=== PATIENT | male | born 1955 ===

== ENCOUNTER → 2023-08-09 | Outpatient (CLI) | payer MEDICAID ==
[2023-08-09 11:59] LABS: Urine Bacteria None Seen /hpf (None Seen)
[2023-08-09 12:26] LABS: Urine Blood Negative /uL (Negative); Urine Color Yellow (Yellow); Urine Hyaline Cast MANY /lpf (0 - 2); Urine Mucus FEW (None Seen); Urine Protein, UAD 2+ (Negative); Urine Specific Gravity 1.027 (1.001-1.035); Urine Sperm PRESENT /hpf (None Seen); Urine Urobilinogen 4 mg/dL (Negative); Urine WBC 6 /hpf (0 - 3)
[2023-08-09 12:28] LABS: Urine Clarity Hazy (Clear)
[2023-08-09 12:34] LABS: Alanine Aminotransferase 20 U/L (7-40); Alkaline Phosphatase 65 U/L (46-116); Anion Gap 7 (5-15); Aspartate Aminotransferase 32 U/L (13-40); Calcium 9.3 mg/dL (8.5-10.1); Carbon Dioxide 27 mmol/L (20-30); Chloride 107 mmol/L (98-107); Glucose 97 mg/dL (74-106); LDL Cholesterol 84 mg/dL (< 100); Potassium 4.5 mmol/L (3.5-5.1); Sodium 141 mmol/L (136-145); Triglycerides 170 mg/dL (< 150)
[2023-08-09 12:35] LABS: Albumin 4.5 g/dL (3.2-4.8); BUN/Creatinine Ratio 3.3 (10.0-20.0); Bilirubin, Total 0.5 mg/dL (0.2-1.0); Blood Urea Nitrogen < 5 mg/dL (9-23); Cholesterol 135 mg/dL (< 200); HDL Cholesterol 29 mg/dL (40-59); Total Protein 7.6 g/dL (5.7-8.2)
[2023-08-09 12:39] LABS: Folate (Folic Acid) 9.04 ng/mL (>5.38)
[2023-08-09 12:49] LABS: Uric Acid 7.6 mg/dL (3.7-9.2)
== END | disposition home or self-care (01) ==
LOC: LAB 11:34
PROVIDERS: ATTEND Internal Medicine
DX: I10 Essential (primary) hypertension (principal); E78.5 Hyperlipidemia, unspecified; K21.9 Gastro-esophageal reflux disease without esophagitis; R82.79 Other abnormal findings on microbiological examination of urine
CPT/HCPCS: 36415; 80053; 80061; 81001; 82306; 82607; 82746; 83036; 83540; 83550; 84443; 84550; 87086

== ENCOUNTER → 2023-10-21 | Outpatient (CLI) | payer MEDICAID ==
[2023-10-21 11:04] LABS: Urine Bacteria None Seen /hpf (None Seen)
[2023-10-21 11:12] LABS: Basophils # (auto) 0.1 10 ^3/uL (0-0.2); Basophils % (auto) 0.6 % (0.0-2.0); Eosinophils # (auto) 0.6 10 ^3/uL (0-0.8); Eosinophils % (auto) 6.2 % (0.0-7.0); Hematocrit 51.1 % (41.0-53.0); Hemoglobin 17.4 g/dL (13.5-17.5); Lymphocytes # (auto) 2.4 10 ^3/uL (0.4-5.4); Lymphocytes % (auto) 26.5 % (10.0-50.0); Mean Corpuscular Hemoglobin 32.3 pg (28.0-32.0); Mean Corpuscular Hgb Conc. 34.1 g/dL (32.0-36.0); Mean Corpuscular Volume 94.7 fL (80.0-100.0); Monocytes # (auto) 0.9 10 ^3/uL (0-1.3); Monocytes % (auto) 10.1 % (0.0-12.0); Neutrophils # (auto) 5.2 10 ^3/uL (1.6-8.6); Neutrophils % (auto) 56.6 % (37.0-80.0); Red Cell Distribution Width 14.3 % (11.8-14.3); White Blood Cell 9.2 10^3/uL (4.4-10.8)
[2023-10-21 11:56] LABS: Urine Blood Negative /uL (Negative); Urine Clarity Clear (Clear); Urine Color Yellow (Yellow); Urine Mucus FEW (None Seen); Urine Protein, UAD 1+ (Negative); Urine Specific Gravity 1.024 (1.001-1.035); Urine Urobilinogen 2 mg/dL (Negative); Urine WBC 2 /hpf (0 - 3)
[2023-10-21 12:24] LABS: Alanine Aminotransferase 17 U/L (7-40); Albumin 4.8 g/dL (3.2-4.8); Alkaline Phosphatase 81 U/L (46-116); Anion Gap 6 (5-15); Aspartate Aminotransferase 18 U/L (13-40); BUN/Creatinine Ratio 6.8 (10.0-20.0); Bilirubin, Total 0.5 mg/dL (0.2-1.0); Blood Urea Nitrogen 8 mg/dL (9-23); Calcium 9.9 mg/dL (8.7-10.4); Carbon Dioxide 29 mmol/L (20-30); Chloride 106 mmol/L (98-107); Cholesterol 202 mg/dL (< 200); Glucose 129 mg/dL (74-106); HDL Cholesterol 33 mg/dL (40-59); LDL Cholesterol 148 mg/dL (< 100); Magnesium 2.2 mg/dL (1.6-2.6); Potassium 3.7 mmol/L (3.5-5.1); Sodium 141 mmol/L (136-145); Total Protein 8.1 g/dL (5.7-8.2); Triglycerides 210 mg/dL (< 150)
[2023-10-21 14:13] LABS: Prostate Specific Antigen 0.28 ng/mL (0.0-4.0)
[2023-10-21 14:15] LABS: Folate (Folic Acid) 8.33 ng/mL (>5.38)
== END | disposition home or self-care (01) ==
LOC: LAB 10:51
PROVIDERS: ATTEND Internal Medicine
DX: I12.9 Hypertensive chronic kidney disease with stage 1 through stage 4 chronic kidney disease, or unspecified chronic kidney disease (principal); N18.31 Chronic kidney disease, stage 3a; N40.0 Benign prostatic hyperplasia without lower urinary tract symptoms; J44.9 Chronic obstructive pulmonary disease, unspecified
CPT/HCPCS: 36415; 80053; 80061; 81001; 82306; 82607; 82746; 83036; 83735; 84153; 84443; 84550; 85025; 87086

== ENCOUNTER → 2024-03-03 | Outpatient (CLI) | payer MEDICAID ==
[2024-03-03 10:32] LABS: Basophils # (auto) 0.1 10 ^3/uL (0-0.2); Eosinophils # (auto) 0.6 10 ^3/uL (0-0.8); Eosinophils % (auto) 8.5 % (0.0-7.0); Hematocrit 49.3 % (41.0-53.0); Hemoglobin 16.4 g/dL (13.5-17.5); Lymphocytes # (auto) 2.7 10 ^3/uL (0.4-5.4); Lymphocytes % (auto) 37.3 % (10.0-50.0); Mean Corpuscular Hemoglobin 31.5 pg (28.0-32.0); Mean Corpuscular Hgb Conc. 33.3 g/dL (32.0-36.0); Mean Corpuscular Volume 94.7 fL (80.0-100.0); Monocytes # (auto) 0.8 10 ^3/uL (0-1.3); Neutrophils # (auto) 3.1 10 ^3/uL (1.6-8.6); Neutrophils % (auto) 42.2 % (37.0-80.0); Nucleated Red Blood Cells % 0.1 %; Platelet Count (auto) 185 10^3/uL (140-450); Red Blood Cells 5.21 10^6/uL (4.5-5.90); Red Cell Distribution Width 14.8 % (11.8-14.3); White Blood Cell 7.2 10^3/uL (4.4-10.8)
[2024-03-03 10:57] LABS: Alanine Aminotransferase 18 U/L (7-40); Albumin 4.4 g/dL (3.2-4.8); Alkaline Phosphatase 69 U/L (46-116); Anion Gap 8 (5-15); Aspartate Aminotransferase 18 U/L (13-40); BUN/Creatinine Ratio 5.8 (10.0-20.0); Calcium 9.9 mg/dL (8.7-10.4); Carbon Dioxide 26 mmol/L (20-31); Cholesterol 189 mg/dL (< 200); Magnesium 2.1 mg/dL (1.6-2.6); Sodium 144 mmol/L (136-145)
[2024-03-03 10:58] LABS: Bilirubin, Total 0.6 mg/dL (0.2-1.0); Total Protein 7.6 g/dL (5.7-8.2)
[2024-03-03 11:00] LABS: % Iron Saturation 30.5 % (20-55)
[2024-03-03 11:01] LABS: Free T4 (Free Thyroxine) 0.88 ng/dL (0.89-1.76)
[2024-03-03 11:02] LABS: Blood Urea Nitrogen 7 mg/dL (9-23); Chloride 110 mmol/L (98-107); Folate (Folic Acid) 6.77 ng/mL (>5.38); Glucose 114 mg/dL (74-106); HDL Cholesterol 30 mg/dL (40-59); LDL Cholesterol 141 mg/dL (< 100); Triglycerides 186 mg/dL (< 150)
[2024-03-03 11:12] LABS: Uric Acid 8.8 mg/dL (3.7-9.2)
[2024-03-04 08:06] LABS: PSA Free 0.09 ng/mL; Prostate Specific Antigen 0.3 ng/mL (0.0-4.0)
== END | disposition home or self-care (01) ==
LOC: LAB 09:49
PROVIDERS: ATTEND Internal Medicine
DX: I12.9 Hypertensive chronic kidney disease with stage 1 through stage 4 chronic kidney disease, or unspecified chronic kidney disease (principal); N18.31 Chronic kidney disease, stage 3a; K21.9 Gastro-esophageal reflux disease without esophagitis; J44.9 Chronic obstructive pulmonary disease, unspecified; E61.2 Magnesium deficiency; E78.49 Other hyperlipidemia; E79.0 Hyperuricemia without signs of inflammatory arthritis and tophaceous disease; E55.9 Vitamin D deficiency, unspecified; D51.9 Vitamin B12 deficiency anemia, unspecified; R68.89 Other general symptoms and signs; R73.09 Other abnormal glucose; R94.6 Abnormal results of thyroid function studies; R82.90 Unspecified abnormal findings in urine; R82.79 Other abnormal findings on microbiological examination of urine
CPT/HCPCS: 36415; 80053; 80061; 82306; 82607; 82746; 83036; 83540; 83550; 83735; 84154; 84439; 84443; 84550; 85025

== ENCOUNTER 2024-05-14 03:25 | Inpatient (IN) | payer MEDICAID ==
[2024-05-14] VITALS (7 sets, daily range): BP systolic 110–145; BP diastolic 59–102; PULSE 58–73; RESP 18–19; TEMP 97.6–98.3; O2SAT 94–98
[~2024-05-14] VITALS: Ht 170.2 cm; Wt 78.8 kg
[~2024-05-14 03:25] MED LIST: APIX5TAB PO; METO-289 PO; PARO10TA93 PO; TAMS0.4C39 PO
[2024-05-14] MEDS ORDERED: AMLO1TAB23 PO (07:32)
[2024-05-14] MEDS ORDERED: PAR20T PO (07:32)
[2024-05-14] MEDS ORDERED: PANT40TA2 PO (07:32)
[2024-05-14] MEDS ORDERED: OME20GT GT (07:32)
[2024-05-14] MEDS ORDERED: ROSU40TA81 PO (07:32)
[2024-05-14] MEDS ORDERED: LISI20TA56 PO (07:32)
[2024-05-14] MEDS: hydrALAZINE HCL 20 MG/ML VL IV ONE (09:45)
[2024-05-14] MEDS ORDERED: ONDANSETRON HCL 4 MG/2 ML VIAL IV PRN (10:45)
[2024-05-14 11:45] LABS: Basophils # (auto) 0 10 ^3/uL (0-0.2); Basophils % (auto) 0.6 % (0.0-2.0); Eosinophils # (auto) 0.4 10 ^3/uL (0-0.8); Eosinophils % (auto) 4.9 % (0.0-7.0); Hematocrit 47.3 % (41.0-53.0); Lymphocytes % (auto) 25.5 % (10.0-50.0); Mean Corpuscular Hemoglobin 31.1 pg (28.0-32.0); Mean Corpuscular Hgb Conc. 33.8 g/dL (32.0-36.0); Mean Corpuscular Volume 91.9 fL (80.0-100.0); Monocytes # (auto) 0.7 10 ^3/uL (0-1.3); Monocytes % (auto) 9.4 % (0.0-12.0); Neutrophils # (auto) 4.6 10 ^3/uL (1.6-8.6); Neutrophils % (auto) 59.6 % (37.0-80.0); Nucleated Red Blood Cells % 0.1 %; Platelet Count (auto) 171 10^3/uL (140-450); Red Blood Cells 5.15 10^6/uL (4.5-5.90); Red Cell Distribution Width 14.3 % (11.8-14.3); White Blood Cell 7.7 10^3/uL (4.4-10.8)
--- NOTE | 2024-05-14 11:58 | DVH ---
PROCEDURE: US CAROTID DUPLX W COLOR DOP 05/14/2024 10:45 AM INDICATION: presyncope COMPARISON: None TECHNIQUE: Real-time grayscale and color Doppler images of the neck arteries were obtained with spect ral analysis performed. FINDINGS: Suboptimal exam due to patient cooperation. RIGHT: No significant atherosclerotic plaque identified in the carotid. Normal spectral waveforms are seen. ICA peak systolic velocity: 45 cm/s ICA end-diastolic velocity: 20 cm/s ICA/CCA ratios: 1.0 LEFT: Mild plaque formation seen at the carotid bulb. Normal spectral waveforms are seen. ICA peak systolic velocity: 41 cm/s ICA end-diastolic velocity: 10 cm/s ICA/CCA ratios: 0.9 VERTEBRAL ARTERIES: The right vertebral artery is nonvisualized. The left vertebral artery shows nor mal antegrade flow spectral waveform. IMPRESSION: 1. No hemodynamically significant carotid artery stenosis identified bilaterally. 2. The right vertebral artery is not seen. Reference: Radiology 2003; 229:[id number] Normal ICA PSV is <125 cm/sec and no plaque or intimal thickening is visible sonographically additional criteria include ICA/CCA PSV ratio <2.0 and ICA EDV <40 cm/sec <50% ICA stenosis ICA PSV is <125 cm/sec and plaque or intimal thickening is visible sonographically additional criteria include ICA/CCA PSV ratio <2.0 and ICA EDV <40 cm/sec 50-69% ICA stenosis ICA PSV is 125-230 cm/sec and plaque is visible sonographically additional criteria include ICA/CCA PSV ratio of 2.0-4.0 and ICA EDV of 40-100 cm/sec 70% ICA stenosis but less than near occlusion ICA PSV is >230 cm/sec and visible plaque and luminal narrowing are seen at rose-scale and color Dopp ler ultrasound (the higher the Doppler parameters lie above the threshold of 230 cm/sec, the greater the likelihood of severe disease) additional criteria include ICA/CCA PSV ratio >4 and ICA EDV >100 cm/sec
[2024-05-14 12:01] LABS: Alanine Aminotransferase 15 U/L (7-40); Albumin 4.6 g/dL (3.2-4.8); Alkaline Phosphatase 62 U/L (46-116); Anion Gap 7 (5-15); Aspartate Aminotransferase 17 U/L (13-40); BUN/Creatinine Ratio 5.6 (10.0-20.0); Calcium 9.3 mg/dL (8.7-10.4); Carbon Dioxide 25 mmol/L (20-31); Chloride 107 mmol/L (98-107); Potassium 3.8 mmol/L (3.5-5.1); Sodium 139 mmol/L (136-145); Total Protein 7.5 g/dL (5.7-8.2)
--- NOTE | 2024-05-14 12:01 | DVHHP2 ---
History of Present Illness Reason for Visit: dizziness History of Present Illness This 69-year-old male with past medical history of hypertension, CHF, pacemaker, depression, GERD is a transferred from [facility] ER. The patient is alert and oriented x3 but somehow poor historian who reports symptoms with dizziness, slurred speech, slower responses a few hours prior to ED visit. Patient denies syncope, headaches, chest pain, shortness of breath, abdominal pain or other acute symptoms. Past Medical History As stated in HPI Past Surgical History Denies Family History Reviewed, non-contributory to the management of this case. Past Social History The patient lives at home, denies smoking, alcohol or illicit drugs abuse. Review of Systems Constitutional: Yes: Weakness, Malaise; No: Fever, Chills, Sweats, Other Eyes: No: Pain, Vision change, Conjunctivae inflammation, Eyelid inflammation, Other, Redness ENT: No: Ear pain, Ear discharge, Nose pain, Nose discharge, Nose congestion, Mouth pain, Mouth swelling, Throat pain, Throat swelling, Other Respiratory: No: Cough, Dry, Shortness of breath, SOB with excertion, Wheezing, Hemoptysis, Pleuritic Pain, Sputum, Wheezing, Other Cardiovascular: No: Chest Pain, Palpitations, Orthopnea, Paroxysmal Noc. Dyspnea, Edema, Lt Headedness, Other Gastrointestinal: No: Nausea, Vomiting, Abdominal Pain, Diarrhea, Constipation, Melena, Hematochezia, Other Genitourinary: No Dysuria, No Frequency, No Incontinence, No Hematuria, No Retention, No Other Musculoskeletal: No: other, neck pain, shoulder pain, arm pain, back pain, hand pain, leg pain, foot pain Skin: No: Rash, Lesions, Jaundice, Bruising, Other Neurological: Weakness, Change in speech, Other (Dizziness) Allergies: Coded Allergies: NO KNOWN ALLERGIES (Unverified , 05/14/24) Medications Current Medications Medications Dose Ordered Sig/Albert Route Start Time Stop Time Status Last Admin Dose Admin Ondansetron HCl 4 mg Q4HP PRN IV 05/14/24 10:45 UNV Enoxaparin Sodium 40 mg DAILY SC 05/15/24 10:00 UNV Exam Vital Signs Vital Signs Date Time Temp Pulse Resp B/P (MAP) Pulse Ox O2 Delivery O2 Flow Rate FiO2 05/14/24 06:45 70 19 95 Room Air* 0 21 05/14/24 06:45 98.2 145/89 (107) 98.2 General Appearance: Alert, Oriented X3, Cooperative HEENT: Atraumatic, EOMI, Mucous membr. moist/pink Respiratory: Clear to auscultation, Normal air movement Cardiovascular: Regular rate, Normal S1, Normal S2 Abdominal: Normal bowel sounds, Soft, No tenderness Extremities: No clubbing, No cyanosis, No edema, Normal pulses, No tenderness/swelling Skin: No rashes, No breakdown, No significant lesion Neuro: Strength at 5/5 X4 ext, Sensation intact Psych/Mental Status: Mental status NL Assessment/Plan Assessment/Plan # Rule out CVA Admit to telemetry Neurology consult CT head results negative for acute pathology Carotid US Echo Labs pending # Hypertension # Presence of permanent pacemaker # CHF Continue with amlodipine, lisinopril, Toprol Hydralazine as needed # hyperlipidemia Statins # anxiety depression Paroxetine # GERD PPI DVT prophylaxis Medical plan discussed with patient and RN Plan discussed with: Patient My Orders Orders - STEPHANIE FIORE Procedure Category Date Status Time Admit ADMIT 05/14/24 Transmitted 10:33 Code Status CODE 05/14/24 Transmitted 10:33 Ondansetron Hcl PHA 05/14/24 Logged (Zofran) 10:45 Enoxaparin Sodium PHA 05/15/24 Logged (Lovenox) 10:00 Fall Risk Precautions IDANIA 05/14/[address] 10:33 Complete Blood Count LAB 05/15/24 Verified 04:00 Comprehensive LAB 05/15/24 Verified Metabolic Panel 04:00 Cardiac DIET 05/14/24 Transmitted Diet-2gna,Lofat,Lochol Lunch Echo 2d Mode Cardiac US 05/14/24 Logged DOP 10:33 Carotid Duplx W Color US 05/14/24 Logged DOP 10:33 Condition: Fair IDANIA 05/14/24 In Process 10:33 * Neurology Consult CONS 05/14/24 Transmitted 10:33 Complete Blood Count LAB 05/14/24 Verified 10:37 Comprehensive LAB 05/14/24 Verified Metabolic Panel 10:37 Urinalysis LAB 05/14/24 Verified 10:37 Amlodipine Tablet PHA 05/15/24 Verified (Norvasc Tablet) 10:00 Amlodipine Tablet PHA 05/14/24 Verified (Norvasc Tablet) 10:45 Lisinopril Tablet PHA 05/15/24 Verified (Zestril Tablet) 10:00 Date of Service: May 14, 2024 Billing Provider: STEPHANIE FIORE Common Visit Codes: [id number] INP/OBS CARE (HIGH) STEPHANIE FIORE May 14, 2024 12:01
[2024-05-14 12:02] LABS: Blood Urea Nitrogen 6 mg/dL (9-23); Glucose 119 mg/dL (74-106)
[2024-05-14 12:38] LABS: Cholesterol 175 mg/dL (< 200)
[2024-05-14 12:40] LABS: HDL Cholesterol 29 mg/dL (40-59); LDL Cholesterol 130 mg/dL (< 100); Triglycerides 164 mg/dL (< 150)
--- NOTE | 2024-05-14 13:31 | DVHPN2 ---
Reviewed: Care Plan, H&P, Labs, Medications, Previous Orders, Radiology Changes from previous H/P or p: No Changes Eyes: No Pain, No Vision change, No Conjunctivae inflammation, No Eyelid inflammation, No Other, No Redness ENT: No Ear pain, No Ear discharge, No Nose pain, No Nose discharge, No Nose congestion, No Mouth pain, No Mouth swelling, No Throat pain, No Throat swelling, No Other Cardiovascular: No Chest Pain, No Palpitations, No Orthopnea, No Paroxysmal Noc. Dyspnea, No Edema, No Lt Headedness, No Other Respiratory: No Cough, No Dry, No Shortness of breath, No SOB with excertion, No Wheezing, No Hemoptysis, No Pleuritic Pain, No Sputum, No Other Gastrointestinal: No Nausea, No Vomiting, No Abdominal Pain, No Diarrhea, No Constipation, No Melena, No Hematochezia, No Other Genitourinary: No Dysuria, No Frequency, No Incontinence, No Hematuria, No Retention, No Other Musculoskeletal: No other, No neck pain, No shoulder pain, No arm pain, No back pain, No hand pain, No leg pain, No foot pain Skin: No Rash, No Lesions, No Jaundice, No Bruising, No Other Objective Vitals Vital Signs Date Time Temp Pulse Resp B/P (MAP) Pulse Ox O2 Delivery O2 Flow Rate FiO2 05/14/24 08:00 70 18 95 Room Air* 0 21 05/14/24 06:45 98.2 145/89 (107) 98.2 Medications Current Medications Medications Dose Ordered Sig/Albert Route Start Time Stop Time Status Last Admin Dose Admin Ondansetron HCl 4 mg Q4HP PRN IV 05/14/24 10:45 Enoxaparin Sodium 40 mg DAILY SC 05/15/24 10:00 Amlodipine Besylate 10 mg DAILY PO 05/15/24 10:00 Lisinopril 20 mg DAILY PO 05/15/24 10:00 Metoprolol Succinate 50 mg DAILY PO 05/15/24 10:00 Pantoprazole Sodium 40 mg DAILY PO 05/15/24 10:00 Paroxetine HCl 20 mg DAILY PO 05/15/24 10:00 Atorvastatin Calcium 80 mg HS PO 05/14/24 22:00 Laboratory Results Laboratory Tests 05/14/24 11:12 Chemistry Test 05/14/24 11:12 Albumin 4.6 g/dL (3.2-4.8) Calcium Level 9.3 mg/dL (8.7-10.4) Total Protein 7.5 g/dL (5.7-8.2) Lipid panel Test 05/14/24 11:12 Cholesterol Level 175 mg/dL (< 200) HDL Cholesterol 29 mg/dL (40-59) L Triglycerides Level 164 mg/dL (< 150) H LFT Test 05/14/24 11:12 Alanine Aminotransferase (ALT) 15 U/L (7-40) Alkaline Phosphatase 62 U/L (46-116) Aspartate Amino Transferase (AST) 17 U/L (13-40) Total Bilirubin 1.0 mg/dL (0.2-1.0) Labs and/or images reviewed: Labs reviewed by me, Image(s) reviewed by me Assessment/Plan Assessment/Plan Slurry Speech rule out CVA CT head negative carotid ultrasound negative echocardiogram pending, Neurology consult for Dr. Perez Hypertension CHF Presence of pacemaker Hypercholesterolemia Anxiety Depression GERD Time spent 45 minutes Advanced care planning time 20 minutes Plan discussed with: Patient Date of Service: May 14, 2024 Billing Provider: JAVIER MARKHAM MD Common Visit Codes: [id number] INP/OBS CARE(HIGH) Secondary Visit Codes: [id number] CARE PLAN 30 MINUTES JAVIER MARKHAM MD May 14, 2024 13:31
[2024-05-14] MEDS: amLODIPine BESYLATE 5 MG TAB PO ONE (17:47)
[2024-05-14] MEDS: ASPirin 81 mg TAB PO ONE (17:48)
[2024-05-14 18:48] LABS: COVID19 ANTIGEN SOFIA FIA NEGATIVE (NEGATIVE)
[2024-05-14] MEDS: ATORVASTATIN 20 MG TAB PO SCH (21:45)
[2024-05-14 22:21] LABS: Urine Bacteria FEW /hpf (None Seen); Urine Blood Negative /uL (Negative); Urine Clarity Turbid (Clear); Urine Color Light-Yellow (Yellow); Urine Mucus FEW (None Seen); Urine Protein, UAD Negative (Negative); Urine Specific Gravity 1.015 (1.001-1.035); Urine Squamous Epithelial Cell None Seen /hpf (<5); Urine Urobilinogen Normal (Negative); Urine WBC 1 /HPF (0-3); Urine pH 7.5 (5.0-9.0)
[2024-05-14 22:35] LABS: Amphetamine Screen, Urine Pos (NEGATIVE); Barbiturate Scree,Urine Neg (NEGATIVE); Benzodiazephine Screen, Urine Neg (NEGATIVE); Cannabinoid Screen, Urine Pos (NEGATIVE); Cocaine Screen, Urine Neg (NEGATIVE); Opiate Scree,Urine Neg (NEGATIVE); Phencyclidine Screen, Urine Neg (NEGATIVE)
[2024-05-15] VITALS (7 sets, daily range): BP systolic 104–127; BP diastolic 68–83; PULSE 66–99; RESP 16–19; TEMP 97.7–99.5; O2SAT 94–96
[2024-05-15 07:16] LABS: Basophils # (auto) 0.1 10 ^3/uL (0-0.2); Basophils % (auto) 0.6 % (0.0-2.0); Eosinophils # (auto) 0.5 10 ^3/uL (0-0.8); Eosinophils % (auto) 5.7 % (0.0-7.0); Hematocrit 48.4 % (41.0-53.0); Hemoglobin 16.6 g/dL (13.5-17.5); Lymphocytes # (auto) 2.3 10 ^3/uL (0.4-5.4); Lymphocytes % (auto) 29.4 % (10.0-50.0); Mean Corpuscular Hemoglobin 31.3 pg (28.0-32.0); Mean Corpuscular Hgb Conc. 34.2 g/dL (32.0-36.0); Mean Corpuscular Volume 91.5 fL (80.0-100.0); Monocytes # (auto) 0.9 10 ^3/uL (0-1.3); Monocytes % (auto) 11.6 % (0.0-12.0); Neutrophils # (auto) 4.2 10 ^3/uL (1.6-8.6); Neutrophils % (auto) 52.7 % (37.0-80.0); Nucleated Red Blood Cells % 0.3 %; Platelet Count (auto) 174 10^3/uL (140-450); Red Cell Distribution Width 14.3 % (11.8-14.3)
[2024-05-15 07:32] LABS: Alanine Aminotransferase 15 U/L (7-40); Albumin 4.5 g/dL (3.2-4.8); Alkaline Phosphatase 60 U/L (46-116); Anion Gap 9 (5-15); Aspartate Aminotransferase 19 U/L (13-40); BUN/Creatinine Ratio 7.6 (10.0-20.0); Calcium 9.5 mg/dL (8.7-10.4); Carbon Dioxide 22 mmol/L (20-31); Chloride 107 mmol/L (98-107); Potassium 3.8 mmol/L (3.5-5.1); Sodium 138 mmol/L (136-145); Total Protein 7.5 g/dL (5.7-8.2)
[2024-05-15 07:39] LABS: Blood Urea Nitrogen 9 mg/dL (9-23); Glucose 109 mg/dL (74-106)
--- NOTE | 2024-05-15 07:59 | DVHSR ---
APPROVED REPORT EXAM: Two-dimensional and M-mode echocardiogram with Doppler and color Doppler. Blood Pressure: 145/89 mmHg INDICATION Presyncope RISK FACTORS Height: 67, Weight: 178 DIMENSIONS LVDd5.1 (3.8-5.7cm)LA (2D)3.9 (1.9-4.0cm)Aortic Root3.8 (2.0-3.7cm) LVDs4.3 (2.5-4.0cm)LA (MM) (1.9-4.0cm)Aortic Cusp Exc1.8 (1.5-2.0cm) EF (%) 34.0 (55-70%)Rt. Atrium4.3 (1.9-4.0cm)Asc. Aorta cm Mitral Valve MitralMitral Stenosis E wave1.54m/sMV Mean GR.mmHg A wavem/sMV Peak GR.117mmHg E/A ratio0.02D MVAcm2 Aortic Valve Aortic ValveAortic Stenosis V10.80m/Mamie Mean GR.2mmHg V21.05m/Mamie Peak GR.4mmHg LVOT Diameter2.3 (1.8-2.4cm)Doppler AVA3.16cm2 Pulmonic Valve V20.73m/s Tricuspid Valve TR Velocity2.53m/s [id number] Other Information Technically limited study due to body habitus and patient position. Conclusion lvef 30% by visual estimate septal wall motionabnormality pacing lead in RV trivial pericardial effusion left atrium enlarged restrictive LV fillng pattern MAC moderate , moderate mitral regurg mild to moderate tricuspid regurg
[2024-05-15] MEDS: amLODIPine BESYLATE 5 MG TAB PO SCH (10:00)
[2024-05-15] MEDS: METOPROLOL SUCCINATE XL 50 MG TAB PO SCH (10:00)
--- NOTE | 2024-05-15 11:12 | DVHPN2 ---
Reviewed: Care Plan, H&P, Labs, Medications, Previous Orders, Radiology Changes from previous H/P or p: No Changes Eyes: No Pain, No Vision change, No Conjunctivae inflammation, No Eyelid inflammation, No Other, No Redness ENT: No Ear pain, No Ear discharge, No Nose pain, No Nose discharge, No Nose congestion, No Mouth pain, No Mouth swelling, No Throat pain, No Throat swelling, No Other Cardiovascular: No Chest Pain, No Palpitations, No Orthopnea, No Paroxysmal Noc. Dyspnea, No Edema, No Lt Headedness, No Other Respiratory: No Cough, No Dry, No Shortness of breath, No SOB with excertion, No Wheezing, No Hemoptysis, No Pleuritic Pain, No Sputum, No Other Gastrointestinal: No Nausea, No Vomiting, No Abdominal Pain, No Diarrhea, No Constipation, No Melena, No Hematochezia, No Other Genitourinary: No Dysuria, No Frequency, No Incontinence, No Hematuria, No Retention, No Other Musculoskeletal: No other, No neck pain, No shoulder pain, No arm pain, No back pain, No hand pain, No leg pain, No foot pain Skin: No Rash, No Lesions, No Jaundice, No Bruising, No Other Objective Vitals Vital Signs Date Time Temp Pulse Resp B/P (MAP) Pulse Ox O2 Delivery O2 Flow Rate FiO2 05/15/24 08:40 99.5 99 16 105/74 (84) 94 99.5 05/14/24 20:00 Room Air* 0 21 Intake/Output Intake and Output 05/15/24 07:00 Intake Total 525 ml Output Total 1780 ml Balance -1255 ml Intake Oral 525 ml Output Urine Total 1780 ml # Voids 1 Medications Current Medications Medications Dose Ordered Sig/Albert Route Start Time Stop Time Status Last Admin Dose Admin Ondansetron HCl 4 mg Q4HP PRN IV 05/14/24 10:45 Enoxaparin Sodium 40 mg DAILY SC 05/15/24 10:00 Amlodipine Besylate 10 mg DAILY PO 05/15/24 10:00 Lisinopril 20 mg DAILY PO 05/15/24 10:00 Metoprolol Succinate 50 mg DAILY PO 05/15/24 10:00 Pantoprazole Sodium 40 mg DAILY PO 05/15/24 10:00 Paroxetine HCl 20 mg DAILY PO 05/15/24 10:00 Atorvastatin Calcium 80 mg HS PO 05/14/24 22:00 05/14/24 21:45 80 MG Aspirin 81 mg DAILY PO 05/15/24 10:00 Laboratory Results Laboratory Tests 05/15/24 06:34 Chemistry Test 05/14/24 11:12 05/15/24 06:34 Albumin 4.6 g/dL (3.2-4.8) 4.5 g/dL (3.2-4.8) Calcium Level 9.3 mg/dL (8.7-10.4) 9.5 mg/dL (8.7-10.4) Total Protein 7.5 g/dL (5.7-8.2) 7.5 g/dL (5.7-8.2) Lipid panel Test 05/14/24 11:12 Cholesterol Level 175 mg/dL (< 200) HDL Cholesterol 29 mg/dL (40-59) L Triglycerides Level 164 mg/dL (< 150) H LFT Test 05/14/24 11:12 05/15/24 06:34 Alanine Aminotransferase (ALT) 15 U/L (7-40) 15 U/L (7-40) Alkaline Phosphatase 62 U/L (46-116) 60 U/L (46-116) Aspartate Amino Transferase (AST) 17 U/L (13-40) 19 U/L (13-40) Total Bilirubin 1.0 mg/dL (0.2-1.0) 1.0 mg/dL (0.2-1.0) Urinalysis Test 05/14/24 21:00 Urine Color Light-yellow (Yellow) Urine Clarity Turbid (Clear) H Urine pH 7.5 (5.0-9.0) Urine Specific [place] 1.015 (1.001-1.035) Urine Protein Negative (Negative) Urine Ketones Negative (Negative) Urine Blood Negative /uL (Negative) Urine Nitrite Negative (Negative) Urine Bilirubin Negative (Negative) Urine Urobilinogen Normal mg/dL (Negative) Urine Leukocyte Esterase Negative /uL (Negative) Urine RBC 1 /hpf (0 - 3) Urine Microscopic WBC 1 /HPF (0-3) Urine Squamous Epithelial Cells None seen /hpf (<5) Urine Bacteria Few /hpf (None Seen) H Urine Mucus Few (None Seen) Urine Glucose Normal mg/dL (Normal) Labs and/or images reviewed: Labs reviewed by me, Image(s) reviewed by me Assessment/Plan Assessment/Plan Patient transferred from [facility] Slurry Speech rule out CVA CT head negative carotid ultrasound negative echocardiogram 30 percent ejection fraction, Neurology consult for Dr. Perez Hypertension CHF Presence of pacemaker Hypercholesterolemia Anxiety Depression GERD Time spent 45 minutes Advanced care planning time 20 minutes Plan discussed with: Patient My Orders Orders - JAVIER MARKHAM MD Procedure Category Date Status Time Aspirin Tablet PHA 05/15/24 In Process 10:00 * Neurology Consult CONS 05/14/24 Transmitted 13:31 Date of Service: May 15, 2024 Billing Provider: JAVIER MARKHAM MD Common Visit Codes: [id number] INP/OBS CARE(HIGH) JAVIER MARKHAM MD May 15, 2024 11:12
--- NOTE | 2024-05-15 11:18 | CONS ---
Home Medication Review Med Rec on Admission: Scheduled Amlodipine Besylate (Amlodipine Besylate), 1 TAB PO DAILY, (Reported) Apixaban Base (Eliquis), 1 TAB PO BID, (Reported) Lisinopril (Lisinopril), 1 TAB PO DAILY, (Reported) Metoprolol Succinate (Metoprolol Succinate Er), 2 TAB PO DAILY, (Reported) Pantoprazole Sodium Sesquihydr (Protonix), 40 MG PO DAILY, (Reported) Paroxetine Hydrochloride (Paroxetine Hydrochloride), 1 TAB PO DAILY, (Reported) Rosuvastatin Calcium (Crestor), 1 TAB PO DAILY, (Reported) Tamsulosin Hcl (Tamsulosin Hcl), 1 TAB PO DAILY, (Reported) Discontinued Medications Paroxetine (Paxil Tablet), 1 TAB PO DAILY, (Reported) Discontinued Reason: Prescription changed Med Rec on Discharge: Electronic Scripts Reported Medications Tamsulosin Hcl (Tamsulosin Hcl) 0.4 Mg Cap, 1 TAB PO DAILY for 90 Days, #90 05/15/24 Apixaban Base (ELIQUIS) 5 Mg Tab, 1 TAB PO BID for 30 Days, #60 05/15/24 Paroxetine Hydrochloride (Paroxetine Hydrochloride) 10 Mg Tab, 1 TAB PO DAILY for 90 Days, #90 05/15/24 Pantoprazole Sodium Sesquihydr (Protonix) 40 Mg Tab, 40 MG PO DAILY, #30 TAB 05/14/24 Rosuvastatin Calcium (Crestor) 40 Mg Tab, 1 TAB PO DAILY, #30 TAB 5 Refills 05/14/24 Amlodipine Besylate (Amlodipine Besylate) 10 Mg Tab, 1 TAB PO DAILY, #30 TAB 5 Refills 05/14/24 Lisinopril (Lisinopril) 20 Mg Tab, 1 TAB PO DAILY, #30 TAB 5 Refills 05/14/24 Metoprolol Succinate (Metoprolol Succinate Er) 50 Mg Tab, 2 TAB PO DAILY for 90 Days, #180 05/14/24 Discontinued Reported Medications Paroxetine (PAXIL TABLET) 20 Mg Tb, 1 TAB PO DAILY, #30 TAB 5 Refills 05/14/24 Notes Notes: Edited: Metoprolol succinate Er 50 mg tab. Take 2 tablets by mouth daily. Paroxetine hydrochloride 10 mg tab. Take 1 tablet by mouth daily. Added: Eliquis 5 mg tab. Take 1 tablet by mouth twice daily. Tamsulosin HCl 0.4 mg cap. Take 1 capsule by mouth daily. Discharge Data Labs: Laboratory Results Test 05/15/24 06:34 05/14/24 21:00 05/14/24 17:41 05/14/24 11:12 White Blood Count 8.0 10^3/uL (4.4-10.8) Red Blood Count 5.30 10^6/uL (4.5-5.90) Hemoglobin 16.6 g/dL (13.5-17.5) Hematocrit 48.4 % (41.0-53.0) Mean Corpuscular Volume 91.5 fL (80.0-100.0) Mean Corpuscular Hemoglobin 31.3 pg (28.0-32.0) Mean Corpuscular Hemoglobin Concent 34.2 g/dL (32.0-36.0) Red Cell Distribution Width 14.3 % (11.8-14.3) Platelet Count 174 10^3/uL (140-450) Mean Platelet Volume 8.6 fL (6.9-10.8) Neutrophils (%) (Auto) 52.7 % (37.0-80.0) Lymphocytes (%) (Auto) 29.4 % (10.0-50.0) Monocytes (%) (Auto) 11.6 % (0.0-12.0) Eosinophils (%) (Auto) 5.7 % (0.0-7.0) Basophils (%) (Auto) 0.6 % (0.0-2.0) Neutrophils # (Auto) 4.2 10 ^3/uL (1.6-8.6) Lymphocytes # (Auto) 2.3 10 ^3/uL (0.4-5.4) Monocytes # (Auto) 0.9 10 ^3/uL (0-1.3) Eosinophils # (Auto) 0.5 10 ^3/uL (0-0.8) Basophils # (Auto) 0.1 10 ^3/uL (0-0.2) Nucleated Red Blood Cells 0.3 % Sodium Level 138 mmol/L (136-145) Potassium Level 3.8 mmol/L (3.5-5.1) Chloride Level 107 mmol/L (98-107) Carbon Dioxide Level 22 mmol/L (20-31) Anion Gap 9 (5-15) Blood Urea Nitrogen 9 mg/dL (9-23) Creatinine 1.18 mg/dL (0.700-1.30) Glomerular Filtration Rate Calc 67 mL/min (>90) BUN/Creatinine Ratio 7.6 (10.0-20.0) Serum Glucose 109 mg/dL (74-106) Calcium Level 9.5 mg/dL (8.7-10.4) Total Bilirubin 1.0 mg/dL (0.2-1.0) Aspartate Amino Transferase (AST) 19 U/L (13-40) Alanine Aminotransferase (ALT) 15 U/L (7-40) Alkaline Phosphatase 60 U/L (46-116) Total Protein 7.5 g/dL (5.7-8.2) Albumin 4.5 g/dL (3.2-4.8) Urine Color Light-yellow (Yellow) Urine Clarity Turbid (Clear) Urine pH 7.5 (5.0-9.0) Urine Specific [place] 1.015 (1.001-1.035) Urine Protein Negative (Negative) Urine Ketones Negative (Negative) Urine Blood Negative /uL (Negative) Urine Nitrite Negative (Negative) Urine Bilirubin Negative (Negative) Urine Urobilinogen Normal mg/dL (Negative) Urine Leukocyte Esterase Negative /uL (Negative) Urine RBC 1 /hpf (0 - 3) Urine Microscopic WBC 1 /HPF (0-3) Urine Squamous Epithelial Cells None seen /hpf (<5) Urine Bacteria Few /hpf (None Seen) Urine Mucus Few (None Seen) Urine Glucose Normal mg/dL (Normal) Urine Opiates Screen Neg (NEGATIVE) Urine Fentanyl Screen Neg (NEGATIVE) Urine Barbiturates Screen Neg (NEGATIVE) Urine Phencyclidine Screen Neg (NEGATIVE) Urine Amphetamines Screen Pos (NEGATIVE) Urine Benzodiazepines Screen Neg (NEGATIVE) Urine Cocaine Screen Neg (NEGATIVE) Urine Cannabinoids Screen Pos (NEGATIVE) SARS-CoV-2 Antigen (Rapid) Negative (NEGATIVE) Triglycerides Level 164 mg/dL (< 150) Cholesterol Level 175 mg/dL (< 200) LDL Cholesterol 130 mg/dL (< 100) HDL Cholesterol 29 mg/dL (40-59) Other Laboratory Tests 05/15/24 06:34 SUSHIL WENRER [facility] May 15, 2024 11:18
[2024-05-15] MEDS: PARoxetine 20 MG TAB PO SCH (11:30)
[2024-05-15] MEDS: LISINOPRIL 20 MG TAB PO SCH (11:31)
[2024-05-15] MEDS: ENOXAPARIN SOD 40 MG/0.4 ML SYRINGE SC SCH (11:31)
[2024-05-15] MEDS: PANTOPRAZOLE 40 MG TAB PO SCH (11:31)
[2024-05-15] MEDS: ASPirin 81 mg TAB PO SCH (11:32)
--- NOTE | 2024-05-15 23:49 | DVHINCON2 ---
Date of service: May 15, [address] Cooney Reason for Consultation Rule out CVA History of Present Illness Mr. Mae is a 69 years old right-handed gentleman with a history of hypertension, congestive heart failure, depression, GERD, the patient was transferred from the [facility] with a chief company of possible stroke, at that time, he was awake, oriented x3, but is a poor historian. He was sitter in the room because of confusion He was reports that he developed dizziness/lightheadedness/spinning sensation on 05/14/2024, along with slurred speech, ER note also mentioned slow responsiveness, the patient was sent to the [facility] where he had unremarkable CT head and CTA head, neck. He reports "better" but he still has dizziness/lightheadedness/spinning sensation at this time. He denies similar symptoms previously, he denies history of stroke He denies headache, chest pain, shortness breath, abdominal pain, or other acute illness recently [facility] CT head, : diffuse cortical atrophy advanced for age with prominence of the ventricles system and extra-axial CSF space. Evidence of prior lacunar infarcts involving both thalami, right basal ganglia. 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 2, near occlusion stenosis arranging right vertebral artery UDS, 05/14/2024: Amphetamine, cannabinoids Urinalysis, 05/14/2024: Unremarkable CBC, 05/15/2024: Unremarkable CMP, 05/15/2024: Unremarkable TG/HDL/LDL/HDL, 05/14/24: 164/175/130/29 Carotid Doppler, 05/14/2024: 1. No hemodynamically significant carotid artery stenosis identified bilaterally. 2. The right vertebral artery is not seen Past Medical History Hypertension, congestive heart failure, depression, GERD Past Surgical History Pacemaker insertion (2021) Family History: Patient reports no known family medical history. Family History Heart disease Social History He was a tobacco smoker, but denies a history of alcohol or recreational substance abuse Allergies: Coded Allergies: NO KNOWN ALLERGIES (Unverified , 05/14/24) Home Meds Reported Medications Tamsulosin Hcl (Tamsulosin Hcl) 0.4 Mg Cap, 1 TAB PO DAILY for 90 Days, #90 05/15/24 Apixaban Base (ELIQUIS) 5 Mg Tab, 1 TAB PO BID for 30 Days, #60 05/15/24 Paroxetine Hydrochloride (Paroxetine Hydrochloride) 10 Mg Tab, 1 TAB PO DAILY for 90 Days, #90 05/15/24 Pantoprazole Sodium Sesquihydr (Protonix) 40 Mg Tab, 40 MG PO DAILY, #30 TAB 05/14/24 Rosuvastatin Calcium (Crestor) 40 Mg Tab, 1 TAB PO DAILY, #30 TAB 5 Refills 05/14/24 Amlodipine Besylate (Amlodipine Besylate) 10 Mg Tab, 1 TAB PO DAILY, #30 TAB 5 Refills 05/14/24 Lisinopril (Lisinopril) 20 Mg Tab, 1 TAB PO DAILY, #30 TAB 5 Refills 05/14/24 Metoprolol Succinate (Metoprolol Succinate Er) 50 Mg Tab, 2 TAB PO DAILY for 90 Days, #180 05/14/24 Discontinued Reported Medications Paroxetine (PAXIL TABLET) 20 Mg Tb, 1 TAB PO DAILY, #30 TAB 5 Refills 05/14/24 Current Medications Current Medications Medications (Trade) Dose Ordered Sig/Albert Route PRN Reason Start Time Stop Time Status Last Admin Enoxaparin Sodium (Lovenox) 40 mg DAILY SC 05/15/24 10:00 05/15/24 11:31 Amlodipine Besylate (Norvasc Tablet) 10 mg DAILY PO 05/15/24 10:00 Lisinopril (Zestril Tablet) 20 mg DAILY PO 05/15/24 10:00 05/15/24 11:31 Metoprolol Succinate (Toprol Xl) 50 mg DAILY PO 05/15/24 10:00 Pantoprazole Sodium (Protonix Tablet) 40 mg DAILY PO 05/15/24 10:00 05/15/24 11:31 Paroxetine HCl (Paxil Tablet) 20 mg DAILY PO 05/15/24 10:00 05/15/24 11:30 Aspirin 81 mg DAILY PO 05/15/24 10:00 05/15/24 11:32 Review of Systems As above, the other systems are negative Vital Signs Vital Signs Date Time Temp Pulse Resp B/P (MAP) Pulse Ox O2 Delivery O2 Flow Rate FiO2 05/15/24 21:00 98.4 78 19 127/72 (90) 96 98.4 05/15/24 08:00 Room Air* 0 21 Physical Exam GENERAL EXAM: General: the patient is well developed and nourished. No acute distress. HEENT: Normocephalic, neck is supple, no carotid bruits. No mass. RESPIRATORY: Normal respiratory effort with symmetrical lung expansion. Lungs clear to auscultation. CARDIOVASCULAR: Regular rate and rhythm with no murmurs. S1, S2. ABDOMEN: Soft, nontender, normal bowel sound NEUROLOGICAL: MENTAL STATUS: Awake and alert. Oriented to person, place, time. Able to give personal history. SPEECH, LANGUAGE, HIGHER CORTICAL FUNCTION: no aphasia or dysathria. CRANIAL NERVES: #2: Intact visual zavala to confrontation. The optic discs were sharp. #3,4,6: Pupils are equal, round and reactive. EOMs full and conjugate. Mild bilateral gaze evoked nystagmus. #5: Facial sensation intact in all three divisions bilaterally. Mandibular strength intact. #7: Facial muscles symmetrical and strength intact. #8: Hearing grossly normal to voice. #9,10: Uvula and soft palate rise in the midline. Swallow and voice are normal. #11: Trapezius and sternomastoid strength intact bilaterally. #12: Tongue midline. No fasciculations or atrophy. SENSATION: Sensation to touch and pinprick is normal. MOTOR: Normal tone in the upper and lower extremity. Normal muscle bulk. No f asciculations. No abnormal movements or posturing. Muscle strength of the major groups in the upper extremities is 5/5. Muscle strength of the major groups in the lower extremities is 5/5. REFLEXES: Deep tendon reflexes normal and symmetrical. No pathological reflexes. CEREBELLAR/COORDINATION: Finger to nose is normal bilaterally. GAIT/STATION: deferred. Labs/Diagnostic Data Labs Test 05/15/24 06:34 05/14/24 21:00 05/14/24 17:41 05/14/24 11:12 Range/Units White Blood Count 8.0 4.4-10.8 10^3/uL Red Blood Count 5.30 4.5-5.90 10^6/uL Hemoglobin 16.6 13.5-17.5 g/dL Hematocrit 48.4 41.0-53.0 % Mean Corpuscular Volume 91.5 80.0-100.0 fL Mean Corpuscular Hemoglobin 31.3 28.0-32.0 pg Mean Corpuscular Hemoglobin Concent 34.2 32.0-36.0 g/dL Red Cell Distribution Width 14.3 11.8-14.3 % Platelet Count 174 140-450 10^3/uL Mean Platelet Volume 8.6 6.9-10.8 fL Neutrophils (%) (Auto) 52.7 37.0-80.0 % Lymphocytes (%) (Auto) 29.4 10.0-50.0 % Monocytes (%) (Auto) 11.6 0.0-12.0 % Eosinophils (%) (Auto) 5.7 0.0-7.0 % Basophils (%) (Auto) 0.6 0.0-2.0 % Neutrophils # (Auto) 4.2 1.6-8.6 10 ^3/uL Lymphocytes # (Auto) 2.3 0.4-5.4 10 ^3/uL Monocytes # (Auto) 0.9 0-1.3 10 ^3/uL Eosinophils # (Auto) 0.5 0-0.8 10 ^3/uL Basophils # (Auto) 0.1 0-0.2 10 ^3/uL Nucleated Red Blood Cells 0.3 % Sodium Level 138 136-145 mmol/L Potassium Level 3.8 3.5-5.1 mmol/L Chloride Level 107 98-107 mmol/L Carbon Dioxide Level 22 20-31 mmol/L Anion Gap 9 5-15 Blood Urea Nitrogen 9 9-23 mg/dL Creatinine 1.18 0.700-1.30 mg/dL Glomerular Filtration Rate Calc 67 >90 mL/min BUN/Creatinine Ratio 7.6 L 10.0-20.0 Serum Glucose 109 H 74-106 mg/dL Calcium Level 9.5 8.7-10.4 mg/dL Total Bilirubin 1.0 0.2-1.0 mg/dL Aspartate Amino Transferase (AST) 19 13-40 U/L Alanine Aminotransferase (ALT) 15 7-40 U/L Alkaline Phosphatase 60 46-116 U/L Total Protein 7.5 5.7-8.2 g/dL Albumin 4.5 3.2-4.8 g/dL Urine Color Light-yellow Yellow Urine Clarity Turbid H Clear Urine pH 7.5 5.0-9.0 Urine Specific [place] 1.015 1.001-1.035 Urine Protein Negative Negative Urine Ketones Negative Negative Urine Blood Negative Negative /uL Urine Nitrite Negative Negative Urine Bilirubin Negative Negative Urine Urobilinogen Normal Negative mg/dL Urine Leukocyte Esterase Negative Negative /uL Urine RBC 1 0 - 3 /hpf Urine Microscopic WBC 1 0-3 /HPF Urine Squamous Epithelial Cells None seen <5 /hpf Urine Bacteria Few H None Seen /hpf Urine Mucus Few None Seen Urine Glucose Normal Normal mg/dL Urine Opiates Screen Neg NEGATIVE Urine Fentanyl Screen Neg NEGATIVE Urine Barbiturates Screen Neg NEGATIVE Urine Phencyclidine Screen Neg NEGATIVE Urine Amphetamines Screen Pos NEGATIVE Urine Benzodiazepines Screen Neg NEGATIVE Urine Cocaine Screen Neg NEGATIVE Urine Cannabinoids Screen Pos NEGATIVE SARS-CoV-2 Antigen (Rapid) Negative NEGATIVE Triglycerides Level 164 H < 150 mg/dL Cholesterol Level 175 < 200 mg/dL LDL Cholesterol 130 H < 100 mg/dL HDL Cholesterol 29 L 40-59 mg/dL Microbiology Date/Time Source Procedure Growth Status 05/14/24 17:41 Nose MRSA Screen - Final Methicillin Resistant S.aureus Complete Assessment Acute dizziness, slurred speech, slowed mentation, Rule out acute stroke Rule out acute metabolic/toxic encephalopathy Rule out partial complex seizure Plan/Recommendation Monitoring Supportive treatment Telemetry EEG MR brain scan Aspirin 81 mg daily Lipitor 80 mg daily DVT prophylaxis/Lovenox GI prophylax/personally Up to chair Physical therapy A sitter in the room More recommendation per clinical Prognosis: Poor This medical document was created using an electronic medical record system with [employer] dictation system. Although this document has been carefully reviewed, there may still be some phonetic and typographical errors. These areas are purely typographical due to imperfections of the software programs, and do not reflect any compromise in the patient's medical care. Plan discussed with: Other LEEANNE SINGH MD May 15, 2024 23:49
[2024-05-16] MEDS ORDERED: LORazepam 2MG/ML-1ML VIAL IV PRN (00:45)
[2024-05-16 01:00] VITALS: BP 139/65; PULSE 70; RESP 18; TEMP 97.9; O2SAT 95
[2024-05-16 05:00] VITALS: BP 134/79; PULSE 97; RESP 19; TEMP 97.6; O2SAT 98
[2024-05-16 08:00] VITALS: PULSE 70; PULSE 74; RESP 18; O2SAT 95
--- NOTE | 2024-05-16 08:38 | CONS ---
Pharmacy Clinical Information: From Heart Failure Fallout Report on CQM Application, Salvador Mae is a 69 year old male with PMH of HTN, CHF, Depression, GERD, and pacemaker. His home medications for heart failure include lisinopril, metoprolol succinate. His inpatient medications include lisinopril, metoprolol succinate. If appropriate, consider initiation of MRA and SGLT2i at next outpatient follow up with cheese specialist at their discretion. DIPESH TAO PHARMACIST May 16, 2024 08:38
[2024-05-16 08:59] VITALS: BP 121/70; PULSE 58; RESP 17; TEMP 97.6; O2SAT 96
[2024-05-16 13:00] VITALS: BP 128/84; PULSE 79; RESP 19; TEMP 97.8; O2SAT 94
[2024-05-16] MEDS ORDERED: ROSU40TA81 PO (13:12)
[2024-05-16] MEDS ORDERED: ASPI-325 PO (13:12)
--- NOTE | 2024-05-16 13:16 | DVHDS2 ---
Discharge Summary Date of Admission May 14, 2024 at 06:23 Date of Discharge: May 16, 2024 Admitting Diagnosis TIA Labs/Diagnostic Data: Laboratory Results Test 05/15/24 06:34 05/14/24 21:00 05/14/24 17:41 05/14/24 11:12 White Blood Count 8.0 10^3/uL (4.4-10.8) Red Blood Count 5.30 10^6/uL (4.5-5.90) Hemoglobin 16.6 g/dL (13.5-17.5) Hematocrit 48.4 % (41.0-53.0) Mean Corpuscular Volume 91.5 fL (80.0-100.0) Mean Corpuscular Hemoglobin 31.3 pg (28.0-32.0) Mean Corpuscular Hemoglobin Concent 34.2 g/dL (32.0-36.0) Red Cell Distribution Width 14.3 % (11.8-14.3) Platelet Count 174 10^3/uL (140-450) Mean Platelet Volume 8.6 fL (6.9-10.8) Neutrophils (%) (Auto) 52.7 % (37.0-80.0) Lymphocytes (%) (Auto) 29.4 % (10.0-50.0) Monocytes (%) (Auto) 11.6 % (0.0-12.0) Eosinophils (%) (Auto) 5.7 % (0.0-7.0) Basophils (%) (Auto) 0.6 % (0.0-2.0) Neutrophils # (Auto) 4.2 10 ^3/uL (1.6-8.6) Lymphocytes # (Auto) 2.3 10 ^3/uL (0.4-5.4) Monocytes # (Auto) 0.9 10 ^3/uL (0-1.3) Eosinophils # (Auto) 0.5 10 ^3/uL (0-0.8) Basophils # (Auto) 0.1 10 ^3/uL (0-0.2) Nucleated Red Blood Cells 0.3 % Sodium Level 138 mmol/L (136-145) Potassium Level 3.8 mmol/L (3.5-5.1) Chloride Level 107 mmol/L (98-107) Carbon Dioxide Level 22 mmol/L (20-31) Anion Gap 9 (5-15) Blood Urea Nitrogen 9 mg/dL (9-23) Creatinine 1.18 mg/dL (0.700-1.30) Glomerular Filtration Rate Calc 67 mL/min (>90) BUN/Creatinine Ratio 7.6 (10.0-20.0) Serum Glucose 109 mg/dL (74-106) Calcium Level 9.5 mg/dL (8.7-10.4) Total Bilirubin 1.0 mg/dL (0.2-1.0) Aspartate Amino Transferase (AST) 19 U/L (13-40) Alanine Aminotransferase (ALT) 15 U/L (7-40) Alkaline Phosphatase 60 U/L (46-116) Total Protein 7.5 g/dL (5.7-8.2) Albumin 4.5 g/dL (3.2-4.8) Urine Color Light-yellow (Yellow) Urine Clarity Turbid (Clear) Urine pH 7.5 (5.0-9.0) Urine Specific [place] 1.015 (1.001-1.035) Urine Protein Negative (Negative) Urine Ketones Negative (Negative) Urine Blood Negative /uL (Negative) Urine Nitrite Negative (Negative) Urine Bilirubin Negative (Negative) Urine Urobilinogen Normal mg/dL (Negative) Urine Leukocyte Esterase Negative /uL (Negative) Urine RBC 1 /hpf (0 - 3) Urine Microscopic WBC 1 /HPF (0-3) Urine Squamous Epithelial Cells None seen /hpf (<5) Urine Bacteria Few /hpf (None Seen) Urine Mucus Few (None Seen) Urine Glucose Normal mg/dL (Normal) Urine Opiates Screen Neg (NEGATIVE) Urine Fentanyl Screen Neg (NEGATIVE) Urine Barbiturates Screen Neg (NEGATIVE) Urine Phencyclidine Screen Neg (NEGATIVE) Urine Amphetamines Screen Pos (NEGATIVE) Urine Benzodiazepines Screen Neg (NEGATIVE) Urine Cocaine Screen Neg (NEGATIVE) Urine Cannabinoids Screen Pos (NEGATIVE) SARS-CoV-2 Antigen (Rapid) Negative (NEGATIVE) Triglycerides Level 164 mg/dL (< 150) Cholesterol Level 175 mg/dL (< 200) LDL Cholesterol 130 mg/dL (< 100) HDL Cholesterol 29 mg/dL (40-59) Other Laboratory Tests 05/15/24 06:34 Brief Hx & Hospital Course: Mr. Mae is a 69 years old right-handed gentleman with a history of hypertension, congestive heart failure, depression, GERD, the patient was transferred from the [facility] with a chief company of possible stroke, at that time, he was awake, oriented x3, but is a poor historian. He was sitter in the room because of confusion He was reports that he developed dizziness/lightheadedness/spinning sensation on 05/14/2024, along with slurred speech, ER note also mentioned slow responsiveness, the patient was sent to the [facility] where he had unremarkable CT head and CTA head, neck. He reports "better" but he still has dizziness/lightheadedness/spinning sensation at this time. He denies similar symptoms previously, he denies history of stroke He denies headache, chest pain, shortness breath, abdominal pain, or other acute illness recently [facility] CT head, : diffuse cortical atrophy advanced for age with prominence of the ventricles system and extra-axial CSF space. Evidence of prior lacunar infarcts involving both thalami, right basal ganglia. 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 2, near occlusion stenosis arranging right vertebral artery UDS, 05/14/2024: Amphetamine, cannabinoids Urinalysis, 05/14/2024: Unremarkable CBC, 05/15/2024: Unremarkable CMP, 05/15/2024: Unremarkable TG/HDL/LDL/HDL, 05/14/24: 164/175/130/29 Carotid Doppler, 05/14/2024: 1. No hemodynamically significant carotid artery stenosis identified bilaterally. 2. The right vertebral artery is not seen Patient was seen at bedside denies any complaints wants to be discharged home. Patient is going back to a motel where he has been living at. Patient is positive for amphetamines. Echocardiogram was done which showed ejection fraction of 30% with wall motion abnormality needs cardiac workup as outpatient. Patient also needs to be seen by Neurology for further workup when patient is agreeable. Overall patient has poor prognosis, quitline counselor on drug use. Condition at Discharge: Poor Final Diagnosis/Problems List TIA Chronic Systolic CHF Amphetaimine Abuse Possible Pituatary Mass Discharge Disposition: Home Discharge Instruct/Medications Diet: Cardiac 2g Na,low cholest (2 gm sodium, low cholesterol) Activity: Light activity Follow Up/Referral: PCP to be seen by Neurology Medic[facility] Discharge Statement: "Patient was advised to return to the ER or call 911 if any headaches, dizziness, shortness of breath, chest pain, abdominal pain, bleeding, fevers, or worsening of medical condition. Patient was counseled about treatment plan, medications, possible side effects, patientverbalized understanding. All questions were answered to the best of my ability. This discharge took greater then 30 minutes in planning, reviewing documentation, counseling the patient, and discussing with other team members." ASSESSMENT ASSESSMENT Assessment Date of Service: May 16, 2024 Billing Provider: PAIGE AYALA MD Common Visit Codes: 68174-TZE/OBS DISCH DAY >30min PAIGE AYALA MD May 16, 2024 13:16
[2024-05-16 16:51] VITALS: BP 117/74; PULSE 67; RESP 19; TEMP 97.8; O2SAT 96
--- NOTE | 2024-05-16 22:42 | DVHEEG2 ---
Neurology EEG Procedural Note Procedural Note EXAM DATE: 05/16/2024 REFERRING DOCTOR: Dr. Singh TECHNIQUE: Eighteen channels of EEG, 2 channels of EOG, and 1 channel of EKG were recorded using the [employer] 10/20 system. CLINICAL DATA: The patient was referred for an EEG evaluation for the evidence of seizure disorder. MEDIATIONS: Status chart BACKGROUND ACTIVITY: While the patient was awake, the background activity consisted of fairly regulated 7-8Hz rhythmic waveforms, symmetrically distributed over both posterior quadrants and was reactive to external stimuli, intermixed with a was diffusely increased theta activity ACTIVATION: Hyperventilation: Not done Photic Stimulation: No photic convulsive response Sleep: Not seen IMPRESSION: This is a mildly abnormal EEG, this EEG is seen in mild cerebral dysfunction due to metabolic/hypoxic encephalopathy or medication effects, please correlate clinically The EKG channel showed a regular heart rate of 72 per [place] [address] LEEANNE SINGH MD May 16, 2024 22:42
== END 2024-05-16 18:00 | disposition home or self-care (01) | DRG 69 ==
LOC: TELE-EAST 06:23
PROVIDERS: ADMIT Internal Medicine; ATTEND Internal Medicine
PROC: 4A00X4Z Measurement of Central Nervous Electrical Activity, External Approach (ICD-10-PCS; principal; 2024-05-16)
DX: G45.9 Transient cerebral ischemic attack, unspecified (principal); G92.8 Other toxic encephalopathy; I50.22 Chronic systolic (congestive) heart failure; I11.0 Hypertensive heart disease with heart failure; F32.A Depression, unspecified; F15.10 Other stimulant abuse, uncomplicated; K21.9 Gastro-esophageal reflux disease without esophagitis; F41.9 Anxiety disorder, unspecified; E78.00 Pure hypercholesterolemia, unspecified; Z20.822 Contact with and (suspected) exposure to COVID-19; F17.200 Nicotine dependence, unspecified, uncomplicated; Z95.0 Presence of cardiac pacemaker; Z79.899 Other long term (current) drug therapy; Z79.82 Long term (current) use of aspirin; G31.89 Other specified degenerative diseases of nervous system
CPT/HCPCS: 36415; 80053; 80061; 80307; 81001; 85025; 87081; 87426; 93306; 93886; 95819; G0378

== ENCOUNTER → 2024-12-27 | Outpatient (CLI) | payer MEDICAID ==
[~2024-12-27] MED LIST changes: +AMLO1TAB23 PO; +ASPI-325 PO; +LISI20TA56 PO; +PANT40TA2 PO; +ROSU40TA81 PO
[2024-12-27 11:39] LABS: Hematocrit 49.8 % (41.0-53.0); Hemoglobin 16.8 g/dL (13.5-17.5); Mean Corpuscular Hemoglobin 30.8 pg (28.0-32.0); Mean Corpuscular Volume 91.4 fL (80.0-100.0); Nucleated Red Blood Cells % 0.1 %
[2024-12-27 12:30] LABS: Alanine Aminotransferase 19 U/L (7-40); Albumin 4.5 g/dL (3.2-4.8); Alkaline Phosphatase 73 U/L (46-116); Anion Gap 10 (5-15); BUN/Creatinine Ratio 8.5 (10.0-20.0); Bilirubin, Total 0.7 mg/dL (0.2-1.0); Blood Urea Nitrogen 10 mg/dL (9-23); Calcium 9.0 mg/dL (8.7-10.4); Carbon Dioxide 24 mmol/L (20-31); Chloride 107 mmol/L (98-107); Cholesterol 159 mg/dL (< 200); Glucose 100 mg/dL (74-106); Potassium 3.8 mmol/L (3.5-5.1); Sodium 141 mmol/L (136-145); Total Protein 7.9 g/dL (5.7-8.2)
[2024-12-27 12:36] LABS: Urine Protein, UAD Negative (Negative)
[2024-12-27 12:49] LABS: HDL Cholesterol 29 mg/dL (40-59); Triglycerides 178 mg/dL (< 150)
[2024-12-27 13:22] LABS: Uric Acid 7.3 mg/dL (3.7-9.2)
== END | disposition home or self-care (01) ==
LOC: LAB 11:07
PROVIDERS: ATTEND Internal Medicine
DX: E78.49 Other hyperlipidemia (principal); E61.2 Magnesium deficiency; E79.0 Hyperuricemia without signs of inflammatory arthritis and tophaceous disease; E55.9 Vitamin D deficiency, unspecified; D51.9 Vitamin B12 deficiency anemia, unspecified; R82.79 Other abnormal findings on microbiological examination of urine; R82.90 Unspecified abnormal findings in urine; R82.998 Other abnormal findings in urine; R94.6 Abnormal results of thyroid function studies; R68.89 Other general symptoms and signs; R73.01 Impaired fasting glucose
CPT/HCPCS: 36415; 80053; 80061; 81001; 82607; 82746; 83036; 84443; 84550; 85025; 87086